=== PATIENT | male | born 1965 | race Caucasian/White ===

== ENCOUNTER 2016-08-18 19:57 | Emergency (ER) | payer BC ==
[~2016-08-18] VITALS: Ht 175.3 cm; Wt 90.7 kg
[2016-08-18] MEDS ORDERED: LIPITOR20 M1 PO (20:32)
== END 2016-08-18 20:39 | disposition short-term general hospital (02) ==
LOC: ER 19:57
DX: J06.9 Acute upper respiratory infection, unspecified (principal); Z88.1 Allergy status to other antibiotic agents
CPT/HCPCS: J0696